=== PATIENT | male | born 1995 | race American Indian/Alaskan Native ===

== ENCOUNTER 2022-04-25 14:37 | Emergency (ER) | payer SELFPAY ==
[2022-04-25] MEDS ORDERED: diazePAM 5 MG TAB PO ONE (20:57)
[2022-04-25] MEDS ORDERED: KETOROLAC 30 MG/1 ML INJ IM ONE (20:57)
--- NOTE | 2022-04-25 22:02 | Emergency Department Report ---
ED General Adult HPI - General Chief complaint: Extremity Problem,Nontraumatic Stated complaint: DISLOCATED JAW Time Seen by Provider: 04/25/22 20:57 Source: patient Mode of arrival: Ambulatory Limitations: No Limitations - History of Present Illness Initial comments: Patient 26-year-old male who presents for left-sided jaw pain x3 days. States spasms and aching exacerbated by chewing. Patient denies fall injury or trauma. States history of TMJ in the past. Patient opening closes mouth at this time without difficulty. Patient is tolerating p.o. intake. Is no fevers no chills no abrasions no facial swelling. No obvious deformity. Severity scale (0 -10): 7 - Related Data Previous Rx's Medication Instructions Recorded Last Taken Type Naproxen 500 mg PO BID PRN #30 tab 04/25/22 Unknown Rx Allergies Allergy/AdvReac Type Severity Reaction Status Date / Time No Known Allergies Allergy Verified 04/25/22 15:44 ED Review of Systems ROS: Stated complaint: DISLOCATED JAW Other details as noted in HPI Constitutional: denies: chills, fever Eyes: denies: eye pain, eye discharge, vision change ENT: denies: ear pain, throat pain Respiratory: denies: cough, shortness of breath, wheezing Cardiovascular: denies: chest pain, palpitations Endocrine: no symptoms reported Gastrointestinal: denies: abdominal pain, nausea, diarrhea Genitourinary: denies: urgency, dysuria Musculoskeletal: denies: back pain, joint swelling, arthralgia Skin: denies: rash, lesions Neurological: denies: headache, weakness, paresthesias Psychiatric: denies: anxiety, depression Hematological/Lymphatic: denies: easy bleeding, easy bruising ED Past Medical Hx - Medications Home Medications: Home Medications Medication Instructions Recorded Confirmed Last Taken Type Naproxen 500 mg PO BID PRN #30 tab 04/25/22 Unknown Rx ED Physical Exam - General Limitations: No Limitations General appearance: alert, in no apparent distress - Head Head exam: Present: normocephalic, normal inspection - Expanded Head Exam Expanded Head exam: Absent: laceration, hematoma, general tenderness, tenderness of temporal artery - Eye Eye exam: Present: normal appearance, PERRL, EOMI Pupils: Present: normal accommodation - ENT ENT exam: Present: normal orophraynx, mucous membranes moist, normal external ear exam, other (Subjective TMJ tenderness bilaterally crepitus no swelling no step-off no ecchymosis no deformity) - Neck Neck exam: Present: normal inspection, full ROM ( no ecchymosis). Absent: tenderness, meningismus, lymphadenopathy - Respiratory Respiratory exam: Present: normal lung sounds bilaterally. Absent: respiratory distress - Cardiovascular Cardiovascular Exam: Present: regular rate, normal rhythm, normal heart sounds. Absent: systolic murmur, diastolic murmur, rubs, gallop - GI/Abdominal GI/Abdominal exam: Present: soft, normal bowel sounds - Rectal Rectal exam: Present: deferred - Extremities Exam Extremities exam: Present: normal inspection, full ROM, normal capillary refill - Back Exam Back exam: Present: normal inspection, full ROM - Neurological Exam Neurological exam: Present: alert, oriented X3, CN II-XII intact, normal gait. Absent: motor sensory deficit - Expanded Neurological Exam Expanded Patient oriented to: Present: person, place, time Speech: Present: fluid speech Cranial nerves: Gag Reflex: Normal, Facial Sensation: Normal Best Eye Response ([place]): (4) open spontaneously Best Motor Response ([place]): (6) obeys commands Best Verbal Response ([place]): (5) oriented [place] Total: 15 - Psychiatric Psychiatric exam: Present: normal affect, normal mood - Skin Skin exam: Present: warm, dry, intact, normal color. Absent: rash ED Course Vital Signs 04/25/22 15:39 Temperature 98.0 F Pulse Rate 63 Blood Pressure 102/65 [Right] O2 Sat by Pulse 99 Oximetry ED Medical Decision Making - Radiology Data Radiology results: report reviewed, image reviewed MANDIBLE 5 VIEW(S) INDICATION / CLINICAL INFORMATION: TMJ COMPARISON: None available. FINDINGS: BONES / JOINT(S): No acute fracture or subluxation. No periodontal erosive changes. SOFT TISSUES: No significant abnormality. ADDITIONAL FINDINGS: None. IMPRESSION: No evidence of acute mandible fracture or dislocation. If clinical concern for fracture remains high, thin acquisition (0.625 mm) CT is recommended for further definition. Signer Name: Jayesh Bergman II, MD Signed: 04/25/2022 10:32 PM Workstation Name: [id number] Transcribed By: JADE Dictated By: JAYESH BERGMAN II, MD Electronically Authenticated By: JAYESH BERGMAN II, MD Signed Date/Time: 04/25/222231 DD/ 29 TD/TT: - Medical Decision Making X-ray negative for fracture no dislocation pain is resolved with medications given in ED. Plan DC to home, follow-up primary care doctor in 2 to 3 days. Return to emergency department should symptoms worsen. Patient verbalized agreement understanding discharge plan patient DC'd home in stable condition at this time. Critical care attestation.: If time is entered above; I have spent that time in minutes in the direct care of this critically ill patient, excluding procedure time. ED Disposition Clinical Impression: Jaw pain Disposition: 01 HOME / SELF CARE / HOMELESS Is pt being admited?: No Does the pt Need Aspirin: No Condition: Stable Instructions: Pain Without a Known Cause Additional Instructions: Take medication as prescribed for pain. Follow-up with primary care doctor in 2 to 3 days. Return to emergency department should symptoms worsen Prescriptions: Naproxen 500 mg PO BID PRN #30 tab PRN Reason: pain Referrals: CASPER YANG MD [Staff Physician] - 3-5 Days Forms: Work/School Release Form(ED) Time of Disposition: 23:02
--- NOTE | 2022-04-25 22:36 | XRay Report ---
MANDIBLE 5 VIEW(S) INDICATION / CLINICAL INFORMATION: TMJ COMPARISON: None available. FINDINGS: BONES / JOINT(S): No acute fracture or subluxation. No periodontal erosive changes. SOFT TISSUES: No significant abnormality. ADDITIONAL FINDINGS: None. IMPRESSION: No evidence of acute mandible fracture or dislocation. If clinical concern for fracture remains high, thin acquisition (0.625 mm) CT is recommended for further definition. Signer Name: Emory Bergman II, MD Signed: 04/25/2022 10:32 PM Workstation Name: [id number]
[2022-04-25 23:57] VITALS: BP 121/69
== END 2022-04-25 23:57 | disposition home or self-care (01) ==
LOC: ED 14:37
DX: R68.84 Jaw pain (principal)
CPT/HCPCS: 70110; 96372; 99283; J1885